=== PATIENT | male | born 1955 | race Caucasian/White ===

== ENCOUNTER → 2024-12-17 | Outpatient (CLI) | payer MEDICARE, MEDICAID, SELFPAY ==
--- NOTE | 2024-12-17 | XR_ITS ---
Examination: Lumbar spine, 5 views Technique: Lumbar spine AP, lateral, coned lateral lower lumbar spine, bilateral obliques 5 views Exam date and time: December 17, 2024 0815 hours INDICATIONS: Mid back pain beginning 2 weeks ago. FINDINGS: Satisfactory alignment lumbar vertebral bodies No lumbar fracture Prominent lumbar spondylosis Advanced degenerative disc disease L4-L5, L5-S1 with prominent facet arthropathy IMPRESSION: Advanced degenerative disc disease L4-L5, L5-S1 with significant spinal stenosis
--- NOTE | 2024-12-17 | XR_ITS ---
Examination: Thoracic spine 3 views TECHNIQUE: AP lateral coned lateral upper dorsal spine 3 views Date and time: December 17, 2024 at 0841 hours INDICATIONS: Mid back pain beginning 2 weeks ago. FINDINGS: Moderate diffuse thoracic disc narrowing Prominent thoracic spondylosis No thoracic fracture Incidental note advanced degenerative disc disease C5-C6, C6-C7 IMPRESSION: Moderate thoracic degenerative disc disease Advanced degenerative disc disease C5-C6 and C6-C7
== END | disposition home or self-care (01) ==
PROVIDERS: PCP Nurse Practitioner Family; Referring Provider Nurse Practitioner Family; Visit Provider Nurse Practitioner Family
DX: M51.34 Other intervertebral disc degeneration, thoracic region (principal); M50.322 Other cervical disc degeneration at C5-C6 level; M51.360 Other intervertebral disc degeneration, lumbar region with discogenic back pain only; M48.061 Spinal stenosis, lumbar region without neurogenic claudication; M51.370 Other intervertebral disc degeneration, lumbosacral region with discogenic back pain only; M48.07 Spinal stenosis, lumbosacral region
CPT/HCPCS: 72072; 72110